=== PATIENT | female | born 1965 | race Caucasian/White ===

== ENCOUNTER 2017-12-06 22:38 | Emergency (ER) | payer BC, MEDICARE ==
--- NOTE | 2017-12-06 23:09 | EDM.PDOC ---
ED HPI GENERAL MEDICAL PROBLEM - General Chief Complaint: Lower Extremity Injury/Pain Stated Complaint: left leg pain Time Seen by Provider: 12/06/17 22:40 Source of Information: Reports: Patient, EMS, Family, RN History Limitations: Reports: No Limitations - History of Present Illness INITIAL COMMENTS - FREE TEXT/NARRATIVE: 52yo female fell at home injurying her left LE. C/o of severe left hip and thigh pain. Fell on a toy in the kitchen. No other c/o voiced. denies loc or head trauma. No syncope. No cp, sob, no abdominal pain. H/o right IT hip fracture, kidney and pancreas transplant. IDDM for 25yo. 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: Reports: Other Medication(s) - Related Data Allergies Allergy/AdvReac Type Severity Reaction Status Date / Time NSAIDS (Non-Steroidal Allergy Renal Verified 12/06/17 22:48 Anti-Inflamma Failure Home Meds: Home Meds Famotidine 20 mg PO DAILY 07/29/14 [History] Insulin Aspart [Novolog Flexpen] 3 - 5 units SUBCUT TIDAC 07/29/14 [History] Metoprolol Tartrate 12.5 mg PO BID 07/29/14 [History] Mycophenolate Mofetil 750 mg PO BID 07/29/14 [History] Sertraline HCl [Zoloft] 150 mg PO BEDTIME 07/29/14 [History] Tacrolimus 1.5 mg PO DAILY 07/29/14 [History] Aspirin [Halfprin] 81 mg PO DAILY 12/06/17 [History] Hydroxychloroquine Sulfate 200 mg PO BID 12/06/17 [History] Tacrolimus [Prograf] 1 mg PO BEDTIME 12/06/17 [History] Social & Family History - Living Situation & Occupation Living situation: Reports: , with Spouse Occupation: Unemployed Review of Systems - Review of Systems Review Of Systems: ROS reveals no pertinent complaints other than HPI. Musculoskeletal: Reports: Leg Pain (left hip/femur pain with motion) ED EXAM, GENERAL - Physical Exam Exam: See Below Exam Limited By: No Limitations General Appearance: Alert, WD/WN, Mild Distress Nose: Normal Inspection Throat/Mouth: Normal Voice, No Airway Compromise Head: Atraumatic, Normocephalic Neck: Normal Inspection, Supple Respiratory/Chest: No Respiratory Distress, Lungs Clear Cardiovascular: Regular Rate, Rhythm Peripheral Pulses: 1+: Dorsalis Pedis (L), Dorsalis Pedis (R) GI/Abdominal: Soft, Non-Tender, Other (well healed incisions from prior abdominal surgery. ) Extremities: Normal Inspection, Other (pain with gentle roll sign left hip.ankle and knee atramatic. right RLE and bilateral UE AT. Normal ROM) Neurological: Alert, Oriented, No Motor/Sensory Deficits Psychiatric: Normal Affect, Normal Mood Skin Exam: Warm, Dry, Intact, Normal Color, No Rash Lymphatic: No Adenopathy Course - Vital Signs Last Recorded V/S: Last Vital Signs Temp 99 F 12/06/17 22:40 Pulse 83 12/06/17 22:40 Resp 18 12/06/17 22:40 BP 174/64 H 12/06/17 23:50 Pulse Ox 100 12/06/17 23:50 - Orders/Labs/Meds Orders: Active Orders 24 hr Category Date Time Status Femur Min 2V Lt [CR] Stat Exams 12/06/17 23:01 Taken Hip wo Cont Lt [CT] Stat Exams 12/06/17 23:47 Ordered Pelvis 1V or 2V [CR] Stat Exams 12/06/17 23:01 Taken Meds: Medications Discontinued Medications Generic Name Dose Route Start Last Admin Trade Name Andersonq PRN Reason Stop Dose Admin Cyclobenzaprine HCl 10 mg 12/07/17 00:30 12/07/17 00:39 Flexeril PO 12/07/17 00:31 10 mg ONETIME ONE Administration Fentanyl 100 mcg 12/06/17 23:13 12/06/17 23:17 Sublimaze IVPUSH 12/06/17 23:14 100 mcg ONETIME ONE Administration Hydromorphone HCl 2 mg 12/07/17 00:20 12/07/17 00:44 Dilaudid IVPUSH 12/07/17 00:21 Not Given ONETIME ONE Hydromorphone HCl 2 mg 12/07/17 00:30 12/07/17 00:33 Dilaudid IVPUSH 12/07/17 00:31 2 mg ONETIME ONE Administration Morphine Sulfate 2 mg 12/06/17 23:47 12/06/17 23:53 Morphine IVPUSH 12/06/17 23:48 2 mg ONETIME ONE Administration Morphine Sulfate Confirm 12/06/17 23:49 12/06/17 23:56 Morphine Administered 12/06/17 23:50 Not Given Dose 2 mg .ROUTE [facility] - Radiology Interpretation Free Text/Narrative:: Right IT hip fracture. CT Results Date: 12/07/17 - Re-Assessments/Exams Free Text/Narrative Re-Assessment/Exam: 12/06/17 23:20 100mcq of fentanyl given. O2 nc placed and O2 sats monitored. Departure - Departure Time of Disposition: 01:00 Disposition: DC/Tfer to Acute Hospital 02 Condition: Good Clinical Impression: Intertrochanteric fracture Qualifiers: Encounter type: initial encounter Fracture type: closed Fracture alignment: nondisplaced Laterality: left Qualified Code(s): S72.145A - Nondisplaced intertrochanteric fracture of left femur, initial encounter for closed fracture - Discharge Information Instructions: Hip Fracture Treated With ORIF, Care After Forms: ED Department Discharge, Interfacility Transfer EMTALA - My Orders Last 24 Hours: My Active Orders 12/06/17 23:01 Femur Min 2V Lt [CR] Stat Pelvis 1V or 2V [CR] Stat 12/06/17 23:47 Hip wo Cont Lt [CT] Stat - Assessment/Plan Last 24 Hours: My Active Orders 12/06/17 23:01 Femur Min 2V Lt [CR] Stat Pelvis 1V or 2V [CR] Stat 12/06/17 23:47 Hip wo Cont Lt [CT] Stat Assessment:: Left IT Hip fracture Plan: 1. Transfer to [facility] for left IT Hip fracture.
[2017-12-06] MEDS ORDERED: fentaNYL 100 MCG/2 ML SDV IVPUSH ONE (23:13)
[2017-12-06] MEDS ORDERED: Morphine 2 MG/ML Syringe IVPUSH ONE (23:47)
[2017-12-06] MEDS ORDERED: Morphine 2 MG/ML Syringe ONE (23:49)
[2017-12-07] MEDS ORDERED: HYDROmorphone 2 MG/ML SDV IVPUSH ONE (00:20)
[2017-12-07] MEDS ORDERED: HYDROmorphone 1 MG/ML Syringe IVPUSH ONE (00:30)
[2017-12-07] MEDS ORDERED: Cyclobenzaprine 10 MG Tab PO ONE (00:30)
[2017-12-07 01:39] VITALS: BP 192/46
== END 2017-12-07 01:00 ==
LOC: KA.ED 22:38
DX: S72.145A Nondisplaced intertrochanteric fracture of left femur, initial encounter for closed fracture (principal); Z88.6 Allergy status to analgesic agent; Z79.4 Long term (current) use of insulin; Z79.82 Long term (current) use of aspirin; Z79.899 Other long term (current) drug therapy; W18.39XA Other fall on same level, initial encounter; Y92.000 Kitchen of unspecified non-institutional (private) residence as the place of occurrence of the external cause
CPT/HCPCS: 72170; 73700-LT; 96374; 96375; 99285; A9270-GY; J1170; J2270; J3010

== ENCOUNTER 2021-12-26 15:06 | Emergency (ER) | payer MEDICARE, BC ==
[2021-12-26] MEDS: Lidocaine 2% with EPINEPHrine 1:200,000 10 ML SDV INFILT ONE (15:27)
[2021-12-26 15:28] VITALS: BP 161/52; PULSE 69
[2021-12-26] MEDS: Bacitracin/Neomycin/Polymyxin B Oint 0.9 GM U/D Packet TOP ONE (15:49)
== END 2021-12-26 16:05 | disposition home or self-care (01) ==
LOC: KA.ED 15:06
DX: S81.011A Laceration without foreign body, right knee, initial encounter (principal); S50.01XA Contusion of right elbow, initial encounter; M54.6 Pain in thoracic spine; M25.421 Effusion, right elbow; Z88.7 Allergy status to serum and vaccine; Z88.8 Allergy status to other drugs, medicaments and biological substances; Z79.82 Long term (current) use of aspirin; Z79.4 Long term (current) use of insulin; Z79.899 Other long term (current) drug therapy; W18.09XA Striking against other object with subsequent fall, initial encounter
CPT/HCPCS: 12001; 73070-RT; 99283; 99283-25

== ENCOUNTER 2022-09-14 19:15 | Emergency (ER) | payer MEDICARE, BC ==
[2022-09-14] MEDS ORDERED: Sodium Chloride 0.9% 10 ML Syringe FLUSH PRN (19:21)
[2022-09-14] MEDS: Sodium Chloride 0.9% 1,000 ML IV ONE (20:30)
[2022-09-14] MEDS ORDERED: Glucagon,Human Recombinant 1 MG Vial IM PRN (20:53)
[2022-09-14] MEDS ORDERED: 50% Dextrose in Water 50 ML Syringe IVPUSH PRN (20:53)
[2022-09-14] MEDS: Insulin Lispro 100 Unit/ML 3 ML KwikPen SUBCUT ONE (21:04)
[2022-09-14 21:33] VITALS: PULSE 72
[2022-09-14 22:22] VITALS: BP 104/43
== END 2022-09-14 22:59 ==
LOC: KA.ED 19:15
DX: T81.31XA Disruption of external operation (surgical) wound, not elsewhere classified, initial encounter (principal); U07.1 COVID-19; E10.10 Type 1 diabetes mellitus with ketoacidosis without coma; D64.9 Anemia, unspecified; I12.9 Hypertensive chronic kidney disease with stage 1 through stage 4 chronic kidney disease, or unspecified chronic kidney disease; E10.22 Type 1 diabetes mellitus with diabetic chronic kidney disease; N18.9 Chronic kidney disease, unspecified; Z88.7 Allergy status to serum and vaccine; Z88.6 Allergy status to analgesic agent; Z88.8 Allergy status to other drugs, medicaments and biological substances; Z79.899 Other long term (current) drug therapy; Z79.01 Long term (current) use of anticoagulants
CPT/HCPCS: 36415; 71045; 80053; 81001; 83605; 83690; 83880; 84484; 85025; 86140; 87040; 93010; 96360; 96361; 99284; 99285-25; A9270-GY; J1815-GY; J3490; J7030

== ENCOUNTER 2023-11-28 16:52 | Emergency (ER) | payer MEDICARE ==
[2023-11-28 18:27] LABS: HEMATOCRIT 38.3 % (37.0-47.0); HEMOGLOBIN 11.4 g/dL (12.0-16.0); MEAN CORPUSCULAR HEMOGLOBIN 28.9 pg (27.0-31.0); MEAN CORPUSCULAR HGB CONC 29.8 g/dL (32.0-36.0); MEAN CORPUSCULAR VOLUME 97.2 fL (82.0-92.0); MEAN PLATELET VOLUME 11.6 fL (7.4-10.4); PLATELET COUNT,PLT 164 10^3/uL (150-400); RED BLOOD CELL COUNT 3.94 10^6/uL (3.80-5.50); RED CELL DISTRIBUTION WIDTH 13.9 % (11.5-14.5); WHITE BLOOD CELL COUNT,WBC 3.36 10^3/uL (5.00-10.00)
[2023-11-28 18:32] LABS: ALBUMIN 2.34 g/dL (3.40-5.00); ANION GAP 15.6 mmol/L (5-15); BILIRUBIN TOTAL 0.4 mg/dL (0.2-1.0); CALCIUM 8.3 mg/dL (8.7-10.3); CARBON DIOXIDE,CO2 27.1 mmol/L (21.0-32.0); CREATININE 2.16 mg/dL (0.51-1.17); EST CRCL DRUG DOSING (CG) 24.81 mL/min; POTASSIUM,K 4.7 mmol/L (3.5-5.1); PROTEIN TOTAL,TP 5.5 g/dL (6.4-8.2)
[2023-11-28] MEDS: Sodium Chloride 0.9% 1,000 ML IV ONE (18:35)
[2023-11-28 19:07] LABS: BAND PERCENT MAN 5 % (4-12); BASOPHILS PERCENT MAN 1 % (0-1); EOSINOPHILS PERCENT MAN 2 % (1-3); LYMPHOCYTES PERCENT MAN 48 % (20-40); MONOCYTES PERCENT MAN 9 % (2-8); SEG NEUTROPHILS PERCENT MAN 35 % (50-70)
[2023-11-28 19:18] VITALS: BP 133/59; PULSE 82
== END 2023-11-28 20:50 | disposition home or self-care (01) ==
LOC: KA.ED 16:52
DX: I95.1 Orthostatic hypotension (principal); E86.0 Dehydration; I12.9 Hypertensive chronic kidney disease with stage 1 through stage 4 chronic kidney disease, or unspecified chronic kidney disease; N18.9 Chronic kidney disease, unspecified; Z88.7 Allergy status to serum and vaccine; Z88.6 Allergy status to analgesic agent; Z79.01 Long term (current) use of anticoagulants; Z79.899 Other long term (current) drug therapy; Z79.4 Long term (current) use of insulin; Z90.49 Acquired absence of other specified parts of digestive tract
CPT/HCPCS: 80053; 85025; 96360; 96361; 99285-25; J7030